=== PATIENT | female | born 1940 | race Caucasian/White ===

== ENCOUNTER 2025-01-26 14:19 | Outpatient (CLI) | payer MEDICARE, BC, SELFPAY | END 2025-01-26 14:20 | disposition home or self-care (01) | LOC: INJ CL 14:22 | PROVIDERS: PCP Physician Assistant Medical; Visit Provider Family Medicine | DX: M17.11 Unilateral primary osteoarthritis, right knee (principal); M25.561 Pain in right knee | CPT/HCPCS: 64454 ==

== ENCOUNTER 2025-02-09 10:20 | Outpatient (CLI) | payer MEDICARE, BC, SELFPAY ==
--- OUTSIDE RECORDS SUMMARY | 2025-02-10 00:47 | XMS_ITS | Clinical Summary ---
Author Organization [employer] [facility] [employer] Address [address] [place] [id number] Care Team Providers Care Biztalk Administrator Name Role Phone Amee Gates Primary Care Provider Allergies Active Allergy Reactions Criticality Noted Date Comments Cranberry GI Upset 12/29/2019 Cranberry tablets Rosuvastatin Other - Describe In Comment Field 10/16/2011 Leg cramps Pravastatin Myalgia 09/05/2010 Spiked her ck Simvastatin Myalgia 09/05/2010 Spiked ck Hydrocodone-Acetaminoph en Rash 03/31/2013 Colesevelam Other - Describe In Comment Field 04/21/2014 Medications MULTIVITAMIN TAB with calcium 0 8 Active CALCIUM 600 + D(3) 600 MG (1,500)-200 UNIT TAB one daily 0 0 9 Active psyllium powd Mix 1 tsp in liquid then take by mouth once daily if needed for Constipation. 283 g 11 2 Active triamcinolone (ARISTOCORT) 0.1 % ointment Apply topically to affected area(s). 3 Active lisinopriL (PRINIVIL; ZESTRIL) 30 mg tabletIndications: HTN (hypertension) Take 1 Tablet (30 mg) by mouth once daily. 90 Tablet 3 5 Active ezetimibe (ZETIA) 10 mg tabletIndications: Hyperlipidemia, unspecified hyperlipidemia type Take 1 Tablet (10 mg) by mouth once daily. 90 Tablet 3 5 Active triamcinolone 0.1% 0.1 % pasteIndications:L esion of mouth Apply small amount to affected area in mouth 3 times a day. 5 g 5 Active magic mouthwash 1:1:1 (diphen 12.5mg/5mL-lidocai ne 2%-maalox [id number]/5ml) (AMB MIX)Indications:Le harish of mouth Swish and spit 5-10 mL by mouth 4 times daily if needed for Mouth Sores. 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 12/29/2019 Skin nodule 04/14/2010 Derangement of posterior horn of medial meniscus 03/06/2010 Unspecified vitamin D deficiency 03/22/2006 Unspecified hypothyroidism 07/23/2005 Resolved Problems Problem Noted Date Diagnosed Date Resolved Date Left knee pain 02/11/2013 12/29/2019 Unspecified vitamin D deficiency 04/22/2012 12/29/2019 Open fractures of multiple s ites of phalanx or phalanges of hand 02/13/2008 12/29/2019 Encounters Date Type Department Care Team Description 02/09/2025 1:00 PM CDT Procedure Only [facility] [address] [place] [address] Ken Del Rio MD Procedure (Right knee Coolief RFA) 01/26/2025 3:00 PM CDT Procedure Only [facility] [address] [place] [address] Ken Del Rio MD Procedure (Right knee genicular nerve bloc... 01/13/2025 3:40 PM CDT Office Visit [facility] [address] [place] [address] Ken Del Rio MD Musculoskeletal Problem (Consult right knee pain discuss Coolief procedure per Dr. Madden) 01/13/2025 Travel 12/29/2024 10:05 AM CDT Office Visit [facility] [address] [place] [address] Jose Armando Portillo MD Sores In Mouth (Been there for 9 days isn't getting any better) 12/29/2024 Travel 12/04/2024 9:30 AM CDT Office Visit [facility] [address] [place] [address] Israel Madden MD Follow Up (f/u right knee) 12/04/2024 Telephone [facility] [address] [place] [address] Ken Del Rio MD Appointment Request 12/04/2024 Travel from Last 3 Months Immunizations Immunization Administration Dates Next Due COVID-19 vaccine (Pfizer-Bio NTech 30mcg/0.3mL) 12YO+ IGNACIO-SUCROSE ASHWIN STAPLES 11/23/2021 COVID-19 vaccine (Pfizer-Bio NTech 30mcg/0.3mL) ASHWIN STAPLES 06/13/2021,11/04/2020,10/13/2020 Influenza, High-dose Inactivated 06/23/2024,09/0 03/2016 Influenza, High-dose Quadriv alent Inactivated 06/26/2023,07/04/2022 Influenza, IIV3 (Age 6-35 mos) 06/22/2015 Influenza, IIV3 (Age >=3 years) 09/05/2006,07/23 Influenza, Inactivated AIIV4 (Age 65+ Years) Preserv Free 07/10/2021 Influenza, Inactivated IIV3 (Age 65+ Years) Preserv Free 06/22/2019,06/02/2018,05/30/2017 Pneumococcal Poly,23-Valent (Pneumovax) 02/17/20 10 Pneumococcal conj 13-Valent (Prevnar 13) 016 RSV, Recombinant ADJ Reconst ituted (Arexvy 120MCG/0.5mL) 09/10/2023 Td, Preservative Free (age >= 7 Years) 7 Tdap 03/01/2017 Zoster (Shingrix-RZV, recombinant) 05/29/2022, Zoster (Zostavax-ZVL, live) 03/22/2012 Family History Medical History Relation Name Comments Good Health Daughter x2 Arthritis Father Coronary artery disease Father [place] a ge 60 Hyperlipidemia Father Diabetes Maternal Grandfather Arthritis Mother Cancer-breast Mother Psychiatric illness Mother Cancer Other Great grandmoth er. Cancer-breast Other Mat. Gr. Grand mother Other Sister x2 ms Good Health Son x3 Cancer-colon No Family History Cancer-ovarian No Family History Cancer-prostate No Family History Relation Name Status Comments Daughter x2 Alive Father (Age 79) Maternal Grandfather Maternal Grandmother Mother (Age 87) Other Paternal Grandfather Paternal Grandmother Sister x2 Alive Son x3 Alive Social History Tobacco Use Types Packs/Day Years Used Date Smoking Tobacco: Never Smokeless Tobacco: Never Tobacco Cessation:Counseling Given: Yes Alcohol Use Standard Drinks/Week Comments Yes 0 (1 standard drink = 0.6 oz pur e alcohol) PHQ-2 Answer Date Recorded PHQ-2 TOTAL SCORE 1 09/29/2024 Social Connections Answer Date Recorded Do you often feel lonely or isolated from those around you? 0 05/25/2024 Alcohol Use Answer Date Recorded How often do you have a drink containing alcohol ? 3 10/12/2021 How many drinks containing a lcohol do you have on a typical day when you are drinking? 0 10/12/2021 How often do you have five or more drinks on one occasion? 0 10/12/2021 Financial Resource Strain Answer Date R ecorded Difficulty of Paying Living Expenses 3 05/25/2024 Difficulty of Paying Living Expenses Not on file 05/25/2024 Food Insecurity Answer Date Recorded Do you worry your food will run out before you are able to buy more? 1 05/25/2024 Transportation Needs Answer Date Record ed Does lack of transportation keep you from medica l appointments? 1 05/25/2024 Does lack of transportation keep you from work, meetings or getting things that you need? 1 05/25/2024 Housing Stability Answer Date Recorded What is your housing situation today? 1 05/25/2024 Utilities Answer Date Recorded Do you have trouble paying f or utilities (for example, heat, electricity, water, phone)? 1 05/25/2024 Comments No Sex and Gender Information Value Date Recorded Sex Assigned at Not on file Legal Sex Female 5:28 AM DISPATCH COORDINATOR Gender Identity Not on file Sexual Orientation Not on file Obstetrics History Last Filed Vital Signs Vital Sign Reading Time Taken Comments Blood Pressure 147/77 01/13/2025 3:39 PM CDT Pulse 60 01/13/2025 3:39 PM CDT Temperature 36.9 C (98.4 F) 01/13/2025 3:39 PM CDT Respiratory Rate 18 04/15/2023 2:06 PM CDT Oxygen Saturation 98% 01/13/2025 3:39 PM CDT Inhaled Oxygen Concentration - - Weight 62.2 kg (137 lb 3.2 oz) 09/29/2024 8:49 A M DISPATCH COORDINATOR Height 172 cm (5' 7.72) 09/29/2024 8:49 AM DISPATCH COORDINATOR Body Mass Index 21.04 09/29/2024 8:49 AM DISPATCH COORDINATOR Plan of Treatment Health Maintenance Due Date Last Done Comments BMI (ht and wt on same day) for age 18+ 09/29/2025 09/29/2024, 09/03/2023, 08/03/2022, Additional history exists Depression screening for age 12+ 09/29/2025 09/29/2024, 09/05/2023, 09/03/2023, Additional history exists Medicare Wellness for age 65+ 09/30/2025 09/29/2024, 09/03/2023, 08/03/2022, Additional history exists Tetanus booster 03/01/2027 03/01/2017, 09/05/2006 Pneumococcal series for age 50+ Completed 03/12/2016, 02/16/2010 Tdap Completed 03/01/2017 DEXA/DXA scan for age 65+ Completed 2017, 02/08/2010, 12/07/2008 Zoster (shingles) series for age 50+ Completed 05/29/2022, 03/25/2021, 03/22/2012 RSV vaccine for adults or Completed 09/10/2023 Influenza Vaccine Completed 06/23/2024, , 06/22/2019, Additional history exists COVID-19 vaccine series Completed 01/19/20 25, 06/23/2024, 07/23/2023, Additional history exists Hepatitis B series for 19+ Aged Out N o longer eligible based on patient's age to complete this topic Procedures Procedure Name Priority Date/Time Associated Diagnosis Comments [place] INJECTION AA&/STRD GENICULAR NRV BRANCHES W/IMG Routine 01/26/2025 12:00 AM CDT Primary osteoarthritis of right knee Chronic pain of right knee XR DXA BONE DENSITY 2 SITES AXIAL Routine 06/10/2018 9:20 AM CDT Menopause from Last 3 Months or Most Recently Relevant to Health Maintenance Results * [place] INJECTION AA&/STRD GENICULAR NRV BRANCHES W/IMG (01/26/2025 12:00 AM CDT) us Ken Del Rio MD PB - NERVOUS SYSTEM SERVIC ES Final Result * (ABNORMAL) XR DXA BONE DENSITY 2 SITES AXIAL (06/10/2018 9:20 AM CDT) Anatomical Region Laterality Modality Spine, HIPS, HIPL, HIPR Other Narrative 06/11/2018 7:56 PM CDT Bone Density Interpretation Is the scan interpretable? Spine YES Hip YES Indication for scan: FOLLOW UP OF EXISTING OSTEOPENIA Prior Scan for comparison: [employer] [place] - 2001, 2004, 2009 and 2009 Current medication for bone loss: NONE Skeletal sites scanned: LUMBAR SPINE L1, L2 and L4 and FEMORAL HIP BILATERAL. Patient identified risk factors: ADVANCED AGE, RACE, HEIGHT LOSS (LOST 2 INCHES), LOW CALCIUM INTAKE, LOW VITAMIN D INTAKE RESULT LUMBAR SPINE BMD (gm/cm2) 0.987 T Score: -1.5 Z Score: 0.2 RESULT LEFT FEMORAL NECK BMD (gm/cm2) 0.732 T Score: -2.2 Z Score: -0.3 RESULT LEFT TOTAL HIP BMD (gm/cm2) 0.746 T Score: -2.1 Z Score: -0.3 BMD SCORES (TRENDING) AP SPINE BMD; CURRENT: 0.987 BASELINE: 1.128 DIFFERENCE: -0.141 TOTAL HIP (MEAN) BMD: CURRENT: 0.746 BASELINE: 0.857 DIFFERENCE: -0.111 FRAX RISK CALCULATION (OSTEOPENIA ONLY) 10 YEAR TOTAL FRACTURE RISK 13.7% 10 YEAR HIP FRACTURE RISK 4.1% CONCLUSION: OSTEOPENIA and SINCE THE BASELINE STUDY, THERE HAS BEEN A SIGNIFICANT DECREASE IN THE BONE DENSITY AT THE SPINE AND HIPS RECOMMENDATIONS: The National Osteoporosis Foundation recommends pharmacologic treatment for post-menopausal women and men >50 with: 1) prior hip or vertebral fracture (Fragility Type); 2) T-score at spine or hip -2.5 or lower; or 3) Total fracture risk is 20% or greater or hip fracture risk is 3% or greater when applying FRAX. The FRAX score and other criteria above (including the Lumbar Spine Bone Density) should be used in conjunction with other clinical risk factors in making treatment decisions. TREATMENT RECOMMENDATION: CONSIDER PHARMACOLOGIC THERAPY SERUM CALCIUM SHOULD BE NORMAL PRIOR TO STARTING THERAPY. OPTIMAL VITAMIN D LEVEL FOR TREATMENT IS > 30 NG/ML. GFR SHOULD BE > 30-35 ML/MIN FOR BISPHOSPHONATE USE. All patients should follow current guidelines for calcium and vitamin D intake. All patients should be considered for fall prevention. Encourage regular exercise, smoking cessation, and no more than moderate alcohol intake. Repeat bone density is recommended in 2 years. Please note: DXA scans are compared to prior studies for a patient only when the two (or more) studies were performed on the same scanner. It is not possible to compare date generated on one scanner to data from another because there are not standards in DXA equipment as there are in mammography and other areas or radiology. This applies even if the two scanners are made by the same machine molder squeeze. Lisa Ford DO DEXA Final Result from Last 3 Months or Most Recently Relevant to Health Maintenance Insurance MEDICARE PART B HB ONLY MEDICARE PB ONLY [facility] [place] [id number] Advance Directives Documents on File Type Date Recorded Patient Housekeeper Expl anation Power of Able Bodied Tankerman 12/30/2013 9:51 AM DURA BLE POWER OF GLOBAL SOURCING MANAGER - 10/05/13 Healthcare Directive 12/30/2013 9:49 AM HE ALTH CARE DECLATION - 10/05/13 * Full Code (Latest Code Status on File) Date Activated Date Inactivated Comments 03/23/2013 1:23 PM 03/24/2013 2:26 AM * Full Code Date Activated Date Inactivated Comments 03/27/2010 2:01 PM 03/28/2010 2:26 AM Care Teams Biztalk Administrator Relationship Specialty Start Date End Date Amee Gates PA [address] [place] [address] PCP - General Physician Foreclosure Field Inspector 10/20/19
== END 2025-02-09 10:21 | disposition home or self-care (01) ==
LOC: INJ CL 10:20
PROVIDERS: PCP Physician Assistant Medical; Visit Provider Family Medicine
DX: M17.11 Unilateral primary osteoarthritis, right knee (principal); M25.561 Pain in right knee; G89.29 Other chronic pain
CPT/HCPCS: 64624; J2250; J2405; J3010